=== PATIENT | female | born 1990 | race Two or more races ===

== ENCOUNTER → 2025-01-25 | Outpatient (CLI) | payer BC ==
[2025-01-25 09:22] LABS: Basophils # (auto) 0.1 10 ^3/uL (0-0.2); Eosinophils # (auto) 0.3 10 ^3/uL (0-0.8); Hemoglobin 12.6 g/dL (12.2-16.2); Monocytes # (auto) 0.5 10 ^3/uL (0-1.3)
[2025-01-25 09:24] LABS: Basophils % (auto) 0.8 % (0.0-2.0); Eosinophils % (auto) 3.8 % (0.0-7.0); Hematocrit 39.1 % (36.0-46.0); Lymphocytes # (auto) 2.2 10 ^3/uL (0.4-5.4); Lymphocytes % (auto) 29.6 % (10.0-50.0); Mean Corpuscular Hemoglobin 25.7 pg (28.0-32.0); Mean Corpuscular Hgb Conc. 32.2 g/dL (32.0-36.0); Mean Corpuscular Volume 79.9 fL (80.0-100.0); Monocytes % (auto) 7.4 % (0.0-12.0); Neutrophils # (auto) 4.3 10 ^3/uL (1.6-8.6); Neutrophils % (auto) 58.4 % (37.0-80.0); Platelet Count (auto) 247 10^3/uL (140-450); Red Blood Cells 4.89 10^6/uL (4.0-5.20); Red Cell Distribution Width 14.1 % (11.8-14.3); White Blood Cell 7.4 10^3/uL (4.4-10.8)
[2025-01-25 09:49] LABS: Alanine Aminotransferase 26 U/L (7-40); Alkaline Phosphatase 96 U/L (46-116); Anion Gap 9 (5-15); Aspartate Aminotransferase 19 U/L (13-40); BUN/Creatinine Ratio 11.3 (10.0-20.0); Bilirubin, Direct 0.1 mg/dL (<0.3); Bilirubin, Total 0.4 mg/dL (0.2-1.0); Calcium 9.6 mg/dL (8.7-10.4); Carbon Dioxide 24 mmol/L (20-31); Chloride 104 mmol/L (98-107); Cholesterol 190 mg/dL (< 200); Glucose 97 mg/dL (74-106); Potassium 3.9 mmol/L (3.5-5.1); Sodium 137 mmol/L (136-145); Total Protein 7.3 g/dL (5.7-8.2); Triglycerides 115 mg/dL (< 150)
[2025-01-25 09:52] LABS: Albumin 4.7 g/dL (3.2-4.8)
[2025-01-25 10:27] LABS: Blood Urea Nitrogen 9 mg/dL (9-23); HDL Cholesterol 69 mg/dL (40-59); LDL Cholesterol 109 mg/dL (< 100)
[2025-01-25 11:18] LABS: % Iron Saturation 35.9 % (15-50)
[2025-01-25 11:21] LABS: Follicle Stimulating Hormone 2.88 IU/L (SEE BELOW); Leuteinizing Hormone 3.9 IU/L
[2025-01-25 11:22] LABS: Prolactin 4.38 ng/mL (2.8-29.2)
== END | disposition home or self-care (01) ==
LOC: LAB 08:54
PROVIDERS: ATTEND Family Medicine
DX: N92.6 Irregular menstruation, unspecified (principal); Z00.00 Encounter for general adult medical examination without abnormal findings
CPT/HCPCS: 36415; 80053; 80061; 82248; 82626; 82670; 83001; 83002; 83540; 83550; 84144; 84146; 84403; 84443; 85025

== ENCOUNTER 2025-06-12 11:12 | Outpatient (CLI) | payer BC ==
[2025-06-12 12:20] LABS: Hematocrit 41.3 % (36.0-46.0); Hemoglobin 14.0 g/dL (12.2-16.2); Mean Corpuscular Hemoglobin 26.9 pg (28.0-32.0); Mean Corpuscular Volume 79.5 fL (80.0-100.0); Nucleated Red Blood Cells % 0.1 %; Urine Protein, UAD Negative (Negative)
[2025-06-12 12:40] LABS: Alanine Aminotransferase 31 U/L (7-40); Albumin 5.0 g/dL (3.2-4.8); Alkaline Phosphatase 87 U/L (46-116); Anion Gap 10 (5-15); BUN/Creatinine Ratio 11.8 (10.0-20.0); Blood Urea Nitrogen 9 mg/dL (9-23); Calcium 9.9 mg/dL (8.7-10.4); Carbon Dioxide 24 mmol/L (20-31); Chloride 103 mmol/L (98-107); Cholesterol 204 mg/dL (< 200); Glucose 87 mg/dL (74-106); HDL Cholesterol 54 mg/dL (40-59); Magnesium 2.0 mg/dL (1.6-2.6); Potassium 4.4 mmol/L (3.5-5.1); Sodium 137 mmol/L (136-145); Total Protein 7.7 g/dL (5.7-8.2); Triglycerides 90 mg/dL (< 150)
[2025-06-12 12:53] LABS: Bilirubin, Total 0.2 mg/dL (0.2-1.0)
[2025-06-12 13:17] LABS: Uric Acid 4.1 mg/dL (3.1-7.8)
[2025-06-12 13:19] LABS: Iron 81.0 ug/dL (50-170)
[2025-06-12 13:22] LABS: Total Iron Binding Capacity 395.0 ug/dL (250-425)
[2025-06-12 13:38] LABS: Free T3 3.08 pg/mL (2.3-4.2); Free T4 (Free Thyroxine) 0.99 ng/dL (0.89-1.76)
[2025-06-13 05:08] LABS: Free Thyroxine Index 1.7 (1.2-4.9)
== END 2025-06-12 17:00 | disposition home or self-care (01) ==
LOC: LAB 11:12
PROVIDERS: ATTEND Family Medicine
DX: Z00.00 Encounter for general adult medical examination without abnormal findings (principal)
CPT/HCPCS: 36415; 80053; 80061; 81001; 82306; 82607; 83036; 83540; 83550; 83735; 84403; 84439; 84443; 84480; 84481; 84550; 85025; 87086

== ENCOUNTER 2025-07-10 15:49 | Outpatient (CLI) | payer BC | END 2025-07-10 17:00 | disposition home or self-care (01) | LOC: LAB 15:49 | PROVIDERS: ATTEND Family Medicine | DX: Z32.01 Encounter for pregnancy test, result positive (principal) | CPT/HCPCS: 36415; 84702 ==

== ENCOUNTER → 2025-07-27 | Outpatient (CLI) | payer BC ==
[2025-07-27 11:03] LABS: Alanine Aminotransferase 24 U/L (7-40); Albumin 4.7 g/dL (3.2-4.8); Alkaline Phosphatase 73 U/L (46-116); Anion Gap 8 (5-15); BUN/Creatinine Ratio 14.1 (10.0-20.0); Blood Urea Nitrogen 12 mg/dL (9-23); Calcium 9.6 mg/dL (8.7-10.4); Carbon Dioxide 26 mmol/L (20-31); Chloride 102 mmol/L (98-107); Glucose 86 mg/dL (74-106); Potassium 4.4 mmol/L (3.5-5.1); Sodium 136 mmol/L (136-145); Total Protein 7.3 g/dL (5.7-8.2)
[2025-07-27 11:04] LABS: Bilirubin, Total 0.3 mg/dL (0.2-1.0)
[2025-07-28 09:07] LABS: Anti-Nuclear Antibody Direct Negative (Negative); Anti-dsDNA Antibody 1 IU/mL (0-9); Antiscleroderma-70 Antibody <0.2 AI (0.0-0.9); Sjogren's Anti-SS-A Antibody <0.2 AI (0.0-0.9); Sjogren's Anti-SS-B Antibody <0.2 AI (0.0-0.9)
== END | disposition home or self-care (01) ==
LOC: LAB 08:19
PROVIDERS: ATTEND Family Medicine
DX: N13.4 Hydroureter (principal); R76.8 Other specified abnormal immunological findings in serum; R53.83 Other fatigue; M79.10 Myalgia, unspecified site
CPT/HCPCS: 36415; 80053; 86160; 86225; 86235; 86376; 86431